=== PATIENT | male | born 1960 | race Two or more races ===

== ENCOUNTER 2017-04-12 11:25 | Day surgery (SDC) | payer OTHER ==
[~2017-04-12] VITALS: Ht 167.6 cm; Wt 71.2 kg
[2017-04-12] MEDS ORDERED: ATOR80TA75 PO (11:57)
[2017-04-12] MEDS ORDERED: EMPA10TA PO (11:57)
[2017-04-12] MEDS ORDERED: ASPI81TA3 PO (11:57)
[2017-04-12] MEDS ORDERED: SITA1TBM4 PO (11:57)
[2017-04-12] MEDS ORDERED: GLIP-95 PO (11:57)
[2017-04-12] MEDS ORDERED: CAPT12.52 PO (11:57)
[2017-04-12 12:00] VITALS: Ht 167.6 cm; Wt 71.2 kg
[2017-04-12 12:26] VITALS: BP 129/66; PULSE 99; RESP 18
[2017-04-12] MEDS ORDERED: FENTAnyl 50 MCG/ML VIAL ONE (13:03)
[2017-04-12] MEDS ORDERED: MIDAZOLAM 1 MG/ML 2 ML INJ ONE ×2 (13:03)
[2017-04-12 13:20] VITALS: BP 116/67; PULSE 88; RESP 12
--- NOTE | 2017-04-16 08:42 | GILP ---
DATE OF PROCEDURE: 04/12/2017 PROCEDURE PERFORMED: Colonoscopy. SURGEON: Nito Oshea MD PREOPERATIVE DIAGNOSIS: Positive occult blood in stool. POSTOPERATIVE DIAGNOSIS: 1. Colonoscopy all the way to the cecum. 2. Internal hemorrhoids. 3. No colon neoplasm was identified. INDICATION: The patient is a 56-year-old male patient, who was noted to have positive occult blood in stool. He was scheduled for a colonoscopy examination for further evaluation. The procedure and possible complications were well explained to the patient. The patient understood and consented to the procedure. DESCRIPTION OF PROCEDURE: Under the influence of fentanyl and Versed, the colonoscope was carefully introduced in the rectum, and under direct vision it was advanced all the way to the cecum. FINDINGS: The patient had internal hemorrhoids. No colon neoplasm was identified. He tolerated the procedure very well and there was no complication from the procedure. At the end of the procedure he was awake with stable vital signs and he was discharged to the care of his family. IMPRESSION: 1. Colonoscopy all the way to the cecum. 2. Internal hemorrhoids. 3. No colon neoplasm was identified. PLAN: Screening colonoscopy in 10 years. Dictated By: MD JARRETT Duran/[email or web address]/bjc /Document#: [id number]
== END 2017-04-12 15:05 | disposition home or self-care (01) ==
LOC: GIL 11:25
PROVIDERS: ATTEND Internal Medicine Gastroenterology
DX: K92.1 Melena (principal); K64.8 Other hemorrhoids; E11.9 Type 2 diabetes mellitus without complications
CPT/HCPCS: 45378; 82962; J2250; J3010